=== PATIENT | male | born 1940 | race Caucasian/White ===

== ENCOUNTER 2021-05-08 07:56 | Outpatient (CLI) | payer MEDICARE, OTHER ==
--- NOTE | 2021-05-08 09:03 | SLEEP CARE CONSULTATION ---
Information from patient questionnaire entered by Karen Sweeney. I have reviewed and concur with the information entered by Karen Sweeney. This document represents the service I personally performed and the decisions made by me, Margaret Beckham ARNP. History of Present Illness Service Date and Time: 05/08/2021 0756 Reason for Visit: New patient, Previously diagnosed sleep apnea (AHI 33.2), Other (repeat titration to determine what machine to be placed on) Chief Complaint: reports: Snoring, Observed pauses in breathing, Frequent awakenings at night Date of Onset: years Usual bedtime: 10 pm Time it takes to fall asleep: 10 minutes Snores at night: Yes Observed to quit breathing while asleep: Yes Sleeps alone due to snoring: No Number of times waking at night: 3 Reasons for waking at night: reports: Bathroom. denies: Choking, Snoring, Gasping for air Toss, Turn, or Twitch while sleeping: Yes Recalls having dreams: No Usually gets out of bed at: 6:30 am Feels refreshed in the morning: Yes Morning headache: No Sleepy or fatigued during the day: Yes Ever fallen asleep while driving: No Takes day naps: No Dreams during day naps: No Prior sleep studies: Yes Year and Where: 2020 - [facility] Type of Sleep Study: Polysomnography Additional HPI information: I had the pleasure of seeing ALBER JOHNSON today regarding the possibility of him having a sleep disorder. His current complaints are frequent night awakenings, observed pauses in breathing and snoring. He has been having sleep studies done which show severe obstructive/central sleep apnea. He had to repeat the polysomnography as a sleep study at home because he did not sleep very well that night in the sleep lab. He then went for a titration study but they were unable to control his central apneas well enough by the end of the night with CPAP and regular BiPAP. He has been trying to get this sleep study completed so that he might start on the appropriate machine to assist his breathing at night. He started this in [place] in November of this year. - Parasomnia Symptoms Ever been unable to move upon waking from sleep: No Walks in sleep: No Talks in sleep: No Ever acted out dreams in sleep: No Ever felt weak in the knees when startled or emotional: No Bothered by creepy, crawly, restless sensations in legs: No Problems with memory or concentration: No Subjective Initial [place] Sleepiness Scale score: 2 (in 2020) Past Medical History Past Medical History: reports: Hypertension, Stroke (TIA 10 years ago), Arrythmia (Atrial fibrillation, Watchman put in, no blood thinner), Other (TURP surgery, from enlarged prostate) Social History The patient's occupation is a RETIRED. Patient is and lives in [place]. Have you smoked in the past 12 months: No Cigarettes per day (20/pack): 20 Years of smokin Quit date: 1964 Smoking Pack Years: 10.0 Alcohol use: Yes Alcohol amount and frequency: 2 drinks a week Caffeine use: Yes Caffeine amount and frequency: 3 drinks a week Family History Family history of sleep disordered breathing: Yes Family Hx Sleep Apnea: Sibling: Sleep apnea - Treated Allergies and Home Medications Drug allergies reviewed: Yes (NKDA) Home medication list reviewed: Yes Allergy and home medication list: Diltiazem hydrochloride 120 mg every other day Cozaar 50 mg daily Multimineral Fish oil B complex Folate Vitamin D Review of Systems Cardiovascular: reports: irregular heart rate or pulse Urinary: reports: frequency Neurological: denies: headaches Psychiatric: denies: anxiety, depression Physical Exam Blood Pressure: 139/85 Cuff size: long Heart Rate: 63 O2 Saturation: 99 Height: 5 ft 9 in Weight: 166 lb Body Mass Index: 24.5 BMI Classification: Healthy weight Heart: irregular rhythm Lungs: clear bilaterally Impression and Plan 1. Suspected Obstructive Sleep Apnea-Hypopnea Syndrome, as previously diagnosed and in needs to have a titration study to determine proper treatment modality. He continues to have irregular snoring, observed pauses in breathing and frequent awakening during the night. A manual CPAP titration study will also be performed to find the optimal treatment pressure. I informed the patient of what the sleep studies involve and after some discussion, obtained agreement to proceed. The pathophysiology of obstructive sleep apnea-hypopnea syndrome was discussed with the patient and health risks of cardiovascular and cerebrovascular disease if not treated. Patient tries to keep his weight at a particular level between 158 and 161 pounds because his control of his blood pressure. He is currently at a healthy weight. Risks of drowsy driving discussed in detail and patient advised to avoid long distance driving and to house mover at the first sign of drowsiness. Patient agreed to plan. * Schedule Titration study. * Avoid long distance driving or driving when feeling sleepy. * Avoid alcohol, sedative and muscle relaxant around bedtime. * Maintain a healthy weight. * Review instructions provided by trained office staff on how to prepare for the sleep study. * Return for follow-up after sleep study completed. Counseling Topics: Weight control Visit Type: In Office Time Spent with Patient (minutes): 37 Provider Statement: I spent 100% of the Face to Face Visit with the patient with greater than 50% spent counseling the patient and coordination of care.
[2021-05-08 09:04] VITALS: BP 139/85
== END 2021-05-08 07:57 | disposition home or self-care (01) ==
LOC: SC 07:56
PROVIDERS: ATTEND Nurse Practitioner Family
DX: G47.33 Obstructive sleep apnea (adult) (pediatric) (principal)
CPT/HCPCS: 99203; G0463; 99212

== ENCOUNTER 2021-07-07 20:37 | Outpatient (CLI) | payer MEDICARE, OTHER | END 2021-07-07 20:38 | disposition home or self-care (01) | LOC: SC 20:37 | PROVIDERS: ATTEND Nurse Practitioner Family | DX: G47.31 Primary central sleep apnea (principal); G47.61 Periodic limb movement disorder; I48.91 Unspecified atrial fibrillation; I10 Essential (primary) hypertension | CPT/HCPCS: 95811 ==

== ENCOUNTER 2021-07-28 08:50 | Outpatient (CLI) | payer MEDICARE, OTHER ==
--- NOTE | 2021-07-28 09:33 | SLEEP CARE CONSULTATION ---
Information from patient questionnaire entered by Karen Sweeney. I have reviewed and concur with the information entered by Karen Sweeney. This document represents the service I personally performed and the decisions made by , Margaret Beckham ARNP. History of Present Illness Service Date and Time: 07/28/2021 0850 Initial [place] Sleepiness Scale score: 2 (in 2020) Current [place] Sleepiness Scale score: 2 Additional HPI information: ALBER JOHNSON retruns with spouse for follow up of the sleep study with a manual CPAP/BIPAP titration study performed on 07-07-21. The patient was informed of the following polysomnography findings: BiPAP S/t was initiated at 12/8 cmH2O and titrated up to 15/10 cmH2O. Backup respiratory rate was set at 8 cmH2O. BiPAP setting at 15/10 cmH2O appeared to be almost adequate. I explained that the optimal BIPAP pressure advised is 10/8 cmH2O with a backup rate of 8 breaths per minutes. Sleep Study - Results Type of Sleep Study: Polysomnography (titration) Prior sleep studies: Yes Year and Where: 2020(PSG and CPAP) - [facility] Polysomnography/Home Sleep Study results: IMPRESSION: The quality of the study is good. BiPAP S/t was initiated at 12/8 cmH2O and titrated up to 15/10 cmH2O. Backup respiratory rate was set at 8 cmH2O. BiPAP setting at 15/10 cmH2O appeared to be almost adequate. The residual respiratory events were mostly hypopneas from the small artificial breaths. Oxygen saturation was normal throughout the night. The patient appeared to have tolerated positive airway pressure therapy fairly well. The patients sleep efficiency was reduced due to several awakenings after the sleep onset.. The sleep stage distribution was relatively normal. There was moderate periodic leg movement of sleep contributing to the sleep fragmentation. Cardiac rhythm was atrial fibrillation. No abnormal behavior (parasomnia) observed during the night. CONCLUSIONS and RECOMMENDATIONS: 1. Central sleep apnea (ICD-10 G47.31), severe (AHI was 30.9 earlier this year in [place]), almost adequately controlled with BiPAP S/T at 15/10 cmH2O with backup rate of 8 breaths per minute. Recommend a wider IPAP:EPAP spread, such as 15/8 cmH2O. BiPAP ASV is an option if the patient does not have reduced left ventricular ejection fraction.. 2. 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 Clinical correlation advised. 3. Atrial fibrillation - ICD I48.91. Recommend further workup and treatment as appropriate. Allergies and Home Medications Home medication list reviewed: Yes Allergy and home medication list: stopped HCTZ, Cozaar Started new BP med, not sure of name Physical Exam Heart Rate: 66 O2 Saturation: 95 Height: 5 ft 9 in Weight: 162 lb Body Mass Index: 23.9 BMI Classification: Healthy weight Impression and Plan 1. Central Sleep Apnea-Hypopnea Syndrome, severe. The patient will be started on nasal auto BIPAP S/T therapy with pressure set at 15/8 cmH2O and backup rate of 8 breaths per minute. Compliance guidelines also reviewed. A copy of compliance guidelines will be given for reference at check out. 2. Periodic limb movement, moderate, that did fragment patients sleep. Periodic limb movement of sleep (PLMS) is characterized by episodes of repetitive limb movements that occur during sleep and usually involve the lower limbs. Patient was advised that no treatment is needed at this time. If symptoms increase, then further evaluation is indicated. 3. Atrial fibrillation. Patient has history of atrial fibrillation. * BIPAP therapy, pressure at 15/8 cm H2O. * Attempt to lose weight. * Avoid alcohol consumption near bedtime. * Avoid supine sleep until using BIPAP. * The patient is again cautioned about driving until sleepiness completely resolves. * Return one month after BIPAP obtained. I will assess response to therapy and compliance at that time. Counseling Topics: Weight control Visit Type: In Office Time Spent with Patient (minutes): 29 Provider Statement: I spent 100% of the Face to Face Visit with the patient with greater than 50% spent counseling the patient and coordination of care.
== END 2021-07-28 08:51 | disposition home or self-care (01) ==
LOC: SC 08:50
PROVIDERS: ATTEND Nurse Practitioner Family
DX: G47.31 Primary central sleep apnea (principal); G47.61 Periodic limb movement disorder; I48.91 Unspecified atrial fibrillation
CPT/HCPCS: 99213; G0463; 99212

== ENCOUNTER 2021-11-04 08:53 | Outpatient (CLI) | payer MEDICARE, OTHER ==
[2021-11-04 10:02] VITALS: BP 134/84
--- NOTE | 2021-11-04 10:02 | SLEEP CARE CONSULTATION ---
Information from patient questionnaire entered by Anila Brown MA. I have reviewed and concur with the information entered by Anila Brown MA. This document represents the service I personally performed and the decisions made by , Margaret Beckham ARNP. History of Present Illness Service Date and Time: 11/04/2021 0853 Previous diagnosis: Severe, Central Sleep Apnea-Hypopnea Syndrome AHI: 33.2 Reason for follow up: first compliance Equipment type: BiPAP Equipment obtained from: Other ([facility]; getting supplies) Mask style: Full face Backup mask available: Yes (other mask) Prior sleep studies: Yes Year and Where: 2020(PSG and CPAP) - [facility] Type of Sleep Study: Polysomnography (titration) HPI additional information: ALBER JOHNSON was diagnosed to have severe, AHI 33.2, central sleep apnea- hypopnea syndrome and returned today for BIPAP therapy first compliance follow- up. Sleep Study - Results Type of Sleep Study: Polysomnography (titration) Prior sleep studies: Yes Year and Where: 2020(PSG and CPAP) - [facility] CPAP Compliance Data - Data Reviewed with Patient Average duration of nightly device use: 7 hours 37 minutes Compliance rate %: 97 Current pressure setting (cmH2O): 128 Average residual AHI: 12.9 Subjective Patient concerns: denies: aerophagia, mask discomfort, air blowing in eyes, mask leak noise, condensation in mask/hose, nasal congestion, dry mouth, nose, throat, epistaxis, other Observed to snore while using device: No Current pressure setting perceived as: comfortable On therapy, patient: reports: sleeping better, drowsiness while driving Initial [place] Sleepiness Scale score: 2 (in 2020) Current [place] Sleepiness Scale score: 2 (IN 2020) Allergies and Home Medications Home medication list reviewed: Yes (no changes) Review of Systems Review of systems same as previous: Yes (no changes) Physical Exam Vital signs obtained and entered by: LASHELL REDDING Blood Pressure: 134/84 (right ) Cuff size: wrist Heart Rate: 89 O2 Saturation: 96 (with mask) Height: 5 ft 9 in Weight: 175 lb (concerns about weight gain on new meds) Body Mass Index: 25.8 BMI Classification: Overweight Impression and Plan 1. Central Sleep Apnea-Hypopnea Syndrome, severe, with good treatment compliance and fair apnea control with mild elevation of residual AHI. On BIPAP therapy, the patient has better sleep quality. Patient came in about a week ago with his chip and his pressure was adjusted to 12/8 cmH2O. I noted on his compliance report a reduction in residual with this change on a daily basis. I do not want to adjust the pressure yet and he would like to stay at this pressure to continue to get used to the higher pressure. Patient is leaving for the winter and will return in February. I encouraged him to call to make a Telehealth appointment for further pressure adjustment and compliance report review. Patient's apnea severity and rationale for treatment to reduce apnea, improve sleep quality and reduce cardiovascular and cerebrovascular events was reviewed. I also reviewed the benefit of consistent device use of BIPAP for hypertension, cerebrovascular disease and arrhythmia. Patient was encouraged to try to lose weight to improve overall health and to reduce apneas. * Continue BIPAP pressure at 12/8 cmH2O * Notify me if snoring with mask or feeling that the pressure is too much or too little * Attempt to lose weight * Call this office if any problems using BIPAP * Return for follow up in 1-2 months, or sooner if concerns arise Counseling Topics: Spare mask, Weight loss health impact Visit Type: In Office Time Spent with Patient (minutes): 26 Provider Statement: I spent 100% of the Face to Face Visit with the patient with greater than 50% spent counseling the patient and coordination of care.
== END 2021-11-04 08:54 | disposition home or self-care (01) ==
LOC: SC 08:53
PROVIDERS: ATTEND Nurse Practitioner Family
DX: G47.31 Primary central sleep apnea (principal)
CPT/HCPCS: 99213; G0463; 99212

== ENCOUNTER 2023-04-14 13:40 | Outpatient (CLI) | payer MEDICARE, OTHER ==
--- NOTE | 2023-04-14 14:18 | Sleep Patient Instructions ---
Sleep Center Visit Summary - Patient Visit Information Reason for Visit: Annual visit for BIPAP therapy - Patient Instructions Additional Instructions: You will continue with CPAP therapy with pressure set at 14/10 cmH2O. A supply prescription will be updated with your DME. Please follow up with the sleep care office in 1 year. - Clinic Information Contact: [facility] [address] [place] [id number] [email or web address] T: [phone]
--- NOTE | 2023-04-14 14:24 | SLEEP CARE CONSULTATION ---
Information from patient questionnaire entered by Ann Gonsales. I have reviewed and concur with the information entered by Ann Gonsales. This document represents the service I personally performed and the decisions made by me, Margaret Beckham ARNP. History of Present Illness Service Date and Time: 04/14/2023 1340 Previous diagnosis: Severe, Central Sleep Apnea-Hypopnea Syndrome AHI: 33.2 Reason for follow up: annual (LAST SEEN 10/2021) Equipment type: BiPAP (Resmed AirCurve 10 ST, s/u 2020) Equipment obtained from: Other ([facility]; getting supplies) Mask style: Full face Backup mask available: No (needs supplies) Prior sleep studies: Yes Year and Where: 2020(PSG and CPAP) - [facility] Type of Sleep Study: Polysomnography (titration) HPI additional information: ALBER JOHNSON was diagnosed to have severe, AHI 33.2, central sleep apnea- hypopnea syndrome and returned today for BIPAP therapy annual follow-up. Sleep Study - Results Type of Sleep Study: Polysomnography (titration) Prior sleep studies: Yes Year and Where: 2020(PSG and CPAP) - [facility] CPAP Compliance Data - Data Reviewed with Patient Average duration of nightly device use: 7 hours 29 minutes Compliance rate %: 93 (29/30 days used) Current pressure setting (cmH2O): 14/10 with 8 resp rate backup Average residual AHI: 5.6 Average large leak: 7.3 l/min Subjective Patient concerns: reports: dry mouth, nose, throat (almost every day). denies: aerophagia, mask discomfort, air blowing in eyes, mask leak noise, condensation in mask/hose, nasal congestion, epistaxis Observed to snore while using device: No Current pressure setting perceived as: comfortable On therapy, patient: reports: sleeping better, awakening more refreshed, being more awake and alert during the day, more rested overall. denies: drowsiness while driving Initial [place] Sleepiness Scale score: 2 (in 2020) Current [place] Sleepiness Scale score: 2 Allergies and Home Medications Known drug allergies: No Drug allergies reviewed: Yes Home medication list reviewed: Yes (no changes) Review of Systems Review of systems same as previous: Yes (no changes) Physical Exam Vital signs obtained and entered by: ANN Leiva MA Blood Pressure: 126/70 (LEFT ARM) Cuff size: regular Heart Rate: 48 Height: 5 ft 9 in Weight: 166 lb 12.8 oz Body Mass Index: 24.6 BMI Classification: Normal Impression and Plan 1. Central Sleep Apnea-Hypopnea Syndrome, severe, with good treatment compliance and good apnea control. On BIPAP therapy, the patient has better sleep quality and is more rested overall. Patient has significant improvement of their sleep apnea and is satisfied with current CPAP therapy. Patient gets dry mouth almost daily. Oral dryness can be reduced by adjusting humidity setting higher or heated hose lower or by adjusting both settings. Verbal instructions given on how to change humidity and heated hose settings with rationale explaining why to change. In addition, there are oral dryness products that can be used to reduce dryness such as Biotene products. Patient's apnea severity and rationale for treatment to reduce apnea, improve sleep quality and reduce cardiovascular and cerebrovascular events was reviewed. I also reviewed the benefit of consistent device use of BIPAP for hypertension, cerebrovascular disease and arrhythmia. * Continue BIPAP pressure at 14/10 cmH2O * Update supplies * Notify me if snoring with mask or feeling that the pressure is too much or too little * Attempt to lose weight * Call this office if any problems using BIPAP * Return for follow up in 1 year, or sooner if concerns arise Counseling Topics: Spare mask Visit Type: In Office Time Spent with Patient (minutes): 25 Provider Statement: I spent 100% of the Face to Face Visit with the patient with greater than 50% spent counseling the patient and coordination of care.
[2023-04-14 14:37] VITALS: BP 126/70
== END 2023-04-14 13:41 | disposition home or self-care (01) ==
LOC: SC 13:40
PROVIDERS: ATTEND Nurse Practitioner Family
DX: G47.31 Primary central sleep apnea (principal)
CPT/HCPCS: 99213; G0463; 99212